=== PATIENT | female | born 1985 | race African-American/Black ===

== ENCOUNTER 2020-09-24 12:10 | Emergency (ER) | payer BC, MEDICAID ==
[2020-09-24] MEDS ORDERED: Acetaminophen/Codeine 30-300mg Tablet ONE (12:53)
--- NOTE | 2020-09-24 13:40 | RAD ---
RIGHT KNEE FOUR VIEWs: 09/24/20 HISTORY: Injury with pain. Joint spaces appear normally maintained. No fracture. No osseous abnormality. IMPRESSION: No acute findings. POS: [facility]W
== END 2020-09-24 13:21 | disposition home or self-care (01) ==
LOC: NAV ERS 12:10
DX: S83.421A Sprain of lateral collateral ligament of right knee, initial encounter (principal); I10 Essential (primary) hypertension; E11.9 Type 2 diabetes mellitus without complications; Z79.84 Long term (current) use of oral hypoglycemic drugs; Z79.899 Other long term (current) drug therapy; X50.1XXA Overexertion from prolonged static or awkward postures, initial encounter

== ENCOUNTER 2020-10-17 20:25 | Emergency (ER) | payer BC, MEDICAID ==
[2020-10-17] MEDS ORDERED: Acetaminophen/Codeine 30-300mg Tablet ONE (21:05)
[2020-10-18 17:25] LABS: SARS-CoV-2 PCR by NAA Not Detected (NotDetected)
== END 2020-10-17 21:28 | disposition home or self-care (01) ==
LOC: NAV ERS 20:25
DX: R05 Cough (principal); Z20.822 Contact with and (suspected) exposure to COVID-19; K04.4 Acute apical periodontitis of pulpal origin; K02.9 Dental caries, unspecified; I10 Essential (primary) hypertension; E11.9 Type 2 diabetes mellitus without complications; Z79.84 Long term (current) use of oral hypoglycemic drugs; Z79.899 Other long term (current) drug therapy
CPT/HCPCS: 87635; 99283; U0003; U0005

== ENCOUNTER 2020-12-19 07:52 | Emergency (ER) | payer BC, MEDICAID ==
[2020-12-19] MEDS ORDERED: Bupivacaine 0.5% 10 ML VIAL ONE (08:14)
[2020-12-19] MEDS ORDERED: Clindamycin 150 MG CAP ONE (08:25)
[2020-12-19] MEDS ORDERED: Acetaminophen/Codeine 30-300mg Tablet ONE (08:46)
== END 2020-12-19 09:14 | disposition home or self-care (01) ==
LOC: NAV ERS 07:52
DX: K04.7 Periapical abscess without sinus (principal); K02.9 Dental caries, unspecified; I10 Essential (primary) hypertension; E11.9 Type 2 diabetes mellitus without complications; Z79.84 Long term (current) use of oral hypoglycemic drugs; Z79.899 Other long term (current) drug therapy
CPT/HCPCS: 64400; J3490

== ENCOUNTER 2021-01-15 11:54 | Emergency (ER) | payer BC, MEDICAID, SELFPAY ==
[2021-01-15] MEDS ORDERED: Ketorolac Tromethamine 30 MG/ML VIAL ONE (12:34)
[2021-01-15] MEDS ORDERED: Clindamycin 150 MG CAP ONE (12:34)
== END 2021-01-15 12:45 | disposition home or self-care (01) ==
LOC: NAV ERS 11:54
DX: K02.9 Dental caries, unspecified (principal); K08.89 Other specified disorders of teeth and supporting structures; I10 Essential (primary) hypertension; E11.9 Type 2 diabetes mellitus without complications; Z79.01 Long term (current) use of anticoagulants; Z79.84 Long term (current) use of oral hypoglycemic drugs; Z79.899 Other long term (current) drug therapy
CPT/HCPCS: 96372; 99282; J1885